=== PATIENT | female | born 1935 | race Asian ===

== ENCOUNTER 2017-12-03 15:42 | Emergency (ER) | END 2017-12-03 21:46 | disposition home or self-care (01) ==

== ENCOUNTER 2019-01-29 19:45 | Emergency (ER) | payer MEDICARE, OTHER ==
[~2019-01-29] VITALS: Ht 154.9 cm; Wt 68.0 kg
[~2019-01-29 19:45] MED LIST: CEFP100T PO; FER325 PO; FOLI-49 PO; MECL-77 PO; METF-849 PO; MULT-552 PO; ONDA4TAB35 PO; TYL500 PO; VALS160T20 PO
[2019-01-29 19:49] VITALS: Ht 154.9 cm; Wt 68.0 kg
[2019-01-29] MEDS ORDERED: MECLIZINE 12.5 MG TAB PO ONE (20:30)
--- NOTE | 2019-01-29 21:53 | ERD ---
ER Documentation Chief Complaint Chief Complaint N/V, BRIGGS X TODAY HPI This is a 83-year-old female who says at 3 PM today she the sudden onset of room spinning and nausea with vomiting x1. She says she has had this before in the past but is been years. She says she has a dull occipital headache. She has no focal neurological complaints of numbness weakness speech change or visual change. She said if she keeps her head still, the room will stop spinning but it only occurs if she moves her head. ROS All systems reviewed and are negative except as per history of present illness. Medications Home Meds Active Scripts Cefpodoxime Proxetil* (Vantin*) 100 Mg Tablet, 100 MG PO Q12, #14 TAB Prov:ELIZABETH FERRELL MD 09/07/15 Ondansetron Hcl* (Zofran* ODT) 4 mg -ODT Tab.disper, 4 MG PO Q6H PRN for NAUSEA, #30 TAB Prov:ELIZABETH FERRELL MD 09/07/15 Reported Medications Folic Acid* (Folic Acid*) 1 Mg Tablet, 1 MG PO DAILY, TAB 09/07/15 Acetaminophen* (Tylenol*) 500 Mg Tab, 500 MG PO DAILY PRN for MILD PAIN LEVEL 1- 3, TAB 09/07/15 Multivitamins* (Once Daily*) 1 Tab Tablet, 1 TAB PO DAILY, TAB 09/07/15 Meclizine Hcl* (Meclizine Hcl*) 25 Mg Tablet, 25 MG PO DAILY PRN for DIZZINESS, TAB 09/07/15 Ferrous Sulfate* (Ferrous Sulfate*) 325 Mg Tabec, 325 MG PO DAILY, TAB 09/07/15 Valsartan* (Diovan*) 160 Mg Tablet, 160 MG PO DAILY, TAB 09/07/15 Metformin* (Glucophage*) 500 Mg Tab, 500 MG PO BID, TAB 09/07/15 Allergies Allergies: Coded Allergies: No Known Allergy (Unverified , 09/07/15) PMhx/Soc History of Surgery: Yes (stomach tumor removal ) Anesthesia Reaction: No Hx Neurological Disorder: No Hx Respiratory Disorders: No Hx Cardiac Disorders: Yes (HTN ) Hx Psychiatric Problems: No Hx Miscellaneous Medical Probl: Yes (Diabetes ) Hx Alcohol Use: No Hx Substance Use: No Hx Tobacco Use: No Smoking Status: Never smoker FmHx Family History: No coronary disease Physical Exam Vitals Vital Signs Date Temp Pulse Resp B/P (MAP) Pulse Ox O2 O2 Flow FiO2 Time Delivery Rate 01/29/19 98.3 90 18 195/87 98 Room Air 20:09 (123) 01/29/19 99.3 102 20 241/102 98 19:49 (148) Physical Exam Const: Well-developed, well-nourished Head: Atraumatic, normocephalic Eyes: Normal Conjunctiva, PERRLA, EOMI, normal sclera, no nystagmus ENT: Normal External Ears, Nose and Mouth, moist mucus membranes. Neck: Full range of motion. No meningismus, no lymphadenopathy. Resp: Clear to auscultation bilaterally, no wheezing, rhonchi, rales Cardio: Regular rate and rhythm, no murmurs, S1 S2 present Abd: Soft, non tender x 4, non distended. Normal bowel sounds, no guarding or rebound, no pulsitile abdominal masses or bruits Skin: No petechiae or rashes, no ecchymosis , no maculopapular rash Back: No midline or flank tenderness Ext: No cyanosis, or edema, FROM x 4, normal inspection, neurovascularly intact x 4 Neur: Awake and alert, STR 5/5 x 4, sensation intact x 4, no focal findings, cerebellum intact, positive Hallpike Psych: Normal Mood and Affect Results 24 hrs Current Medications Medications Dose Sig/Gini Start Time Status Last (Trade) Ordered Route PRN Stop Time Admin Dose Reason Admin Meclizine 25 mg ONCE ONCE 01/29/19 DC 01/29/19 HCl PO 20:30 21:08 (Antivert) 01/29/19 20:31 Procedures/MDM MR #: [id number] DOS: 01/29/192025 Ordering MD: ANTELMO NINA DO Location: E/R Room/Bed: PROCEDURE: CT Brain without contrast. CLINICAL INDICATION: Altered mental status, vertigo TECHNIQUE: Routine CT scan of the brain was performed on a high resolution multi detector scanner without intravenous contrast. One or more of the following dose reduction techniques were used: Automated exposure control; Adjustment of the mA and/or kV according to patient size; Use of iterative reconstruction technique. CTDI = 39 mGy. DLP = 634 mGy-cm. DICOM images are available. COMPARISON: CT BRAIN 12/03/2017 FINDINGS: Hemorrhage: No evidence of intracranial hemorrhage. Acute ischemic changes: No evidence of acute ischemic changes. Mass effect: None. Parenchymal volume: Within normal limits for age. Ventricular system: Concordant with parenchymal volume. Chronic changes: Parenchymal attenuation is within normal limits. Extracranial soft tissues: Unremarkable. Calvarium: No fractures. Paranasal sinuses: Visualized paranasal sinuses are clear. Mastoid air cells: Visualized mastoid air cells are clear. IMPRESSION: No acute intracranial abnormalities. 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 MRI of the brain can be obtained for further evaluation. RPTAT: AADD .Zion Zaman MD, MD Date Time Electronically viewed and signed by .Zion Zaman MD, MD on 01/29/2019 21:01 .B/ CC: ANTELMO NINA DO [id number] After Antivert the patient says she has no more vertigo whatsoever. I will home with Antivert Her symptoms are indicative of a peripheral vertigo and not a central Departure Diagnosis: Primary Impression: Vertigo Condition: Stable ANTELMO NINA DO Jan 29, 2019 21:53
[2019-01-29] MEDS ORDERED: TRAM50TA2 PO (21:54)
[2019-01-29] MEDS ORDERED: MECL12.574 PO (21:54)
[2019-01-29] MEDS ORDERED: ONDANSETRON 4 MG INJ IV STA (21:54)
[2019-01-29] MEDS ORDERED: morphine 4 MG/ML VIAL IV STA (21:54)
[2019-01-29 22:11] VITALS: BP 176/92; PULSE 89; RESP 18
== END 2019-01-29 22:30 | disposition home or self-care (01) ==
LOC: E/R 19:45
DX: R42 Dizziness and giddiness (principal); I10 Essential (primary) hypertension; E11.9 Type 2 diabetes mellitus without complications; Z79.84 Long term (current) use of oral hypoglycemic drugs
CPT/HCPCS: 70450; 96374; 96375; 99285; J2270; J2405